=== PATIENT | female | born 1965 | race Caucasian/White ===

== ENCOUNTER 2020-09-14 14:59 | Outpatient (REF) | payer OTHER, SELFPAY ==
--- NOTE | 2020-09-14 15:04 | MM_ITS ---
EXAMINATION: MM DIAGNOSTIC DIGITAL BREAST TOMOSYNTHESIS, BILATERAL CLINICAL INFORMATION: Due for yearly. Family history breast cancer in sister, age 50s. Prior outside mammography notes probable benign nodule upper outer quadrant left breast for diagnostic follow-up. The lifetime risk of breast cancer based on the Tyrer-Cuzick Model is 12%. COMPARISON: Outside exams: mammography 02/14/2019, 01/21/2019, 04/09/2010 and ultrasound (report) 02/14/2019 ([facility]). TECHNIQUE: Digital breast tomosynthesis is performed in both the craniocaudal and mediolateral oblique views along with computer-aided detection (CAD). Synthesized 2D images are generated from the tomosynthesis. FINDINGS: There are scattered areas of fibroglandular density (ACR BI-RADS breast composition Category b). There is scattered fine nodularity in each breast similar to outside exam. There is no interval dominant nodule, significant mass, developing density, or architectural abnormality. No abnormal calcifications. The nodule for follow-up upper outer left breast approximately 10.4 cm from nipple on CC view is stable, measuring approximately 6 x 5 x 4 mm, with smooth margin and a punctate peripheral rim calcification. The axilla and skin contours are unremarkable. No significant changes. Results are discussed with the patient at time of visit. MM/MM tomosynthesis diagnostic BI IMPRESSION: 1. No significant changes from prior outside exam. 2. Benign-appearing nodule for follow-up upper outer left breast stable. ASSESSMENT: BI-RADS 3: Probably Benign RECOMMENDATION: Diagnostic mammography at time of next annual exam, due in 12 months. This patient's information was entered into a reminder system with a target due date for their next mammogram.
== END 2020-09-14 15:00 | disposition home or self-care (01) ==
LOC: HO.MAMMO 14:59
PROVIDERS: Visit Provider Physician Assistant
DX: N63.21 Unspecified lump in the left breast, upper outer quadrant (principal); Z80.3 Family history of malignant neoplasm of breast
CPT/HCPCS: 77062; 77066

== ENCOUNTER 2021-10-04 14:45 | Outpatient (REF) | payer OTHER, SELFPAY ==
--- NOTE | ~2021-10-04 | MM_ITS ---
EXAMINATION: MM DIAGNOSTIC DIGITAL BREAST TOMOSYNTHESIS, BILATERAL CLINICAL INFORMATION: 12 month follow-up left breast nodule The lifetime risk of breast cancer based on the Tyrer-Cuzick Model is 17.3%. COMPARISON: Mammography: September 14, 2020 and studies dating back to April 09, 2010 TECHNIQUE: Digital breast tomosynthesis is performed in both the craniocaudal and mediolateral oblique views along with computer-aided detection (CAD). Synthesized 2D images are generated from the tomosynthesis. FINDINGS: There are scattered areas of fibroglandular density (ACR BI-RADS breast composition Category b). There is again noted to be multiplicity and bilaterality of circumscribed densities without significant change from prior studies. No abnormal dominant mass or suspicious grouping of microcalcifications identified. Results are provided to the patient at time of visit by the technologist. MM/MM tomosynthesis diagnostic BI IMPRESSION: There are no significant changes from prior study. ASSESSMENT: BI-RADS 2: Benign RECOMMENDATION: Routine annual mammography screening. This patient's information was entered into a reminder system with a target due date for their next mammogram.
== END 2021-10-04 14:46 | disposition home or self-care (01) ==
LOC: HO.MAMMO 14:45
PROVIDERS: PCP Physician Assistant; Visit Provider Physician Assistant
DX: R92.2 Inconclusive mammogram (principal)
CPT/HCPCS: 77062; 77066

== ENCOUNTER 2021-12-22 14:14 | Emergency (ER) | payer OTHER, SELFPAY ==
[2021-12-22] VITALS (9 sets, daily range): BP systolic 127–175; BP diastolic 64–85; PULSE 55–78; RESP 13–24; TEMP 36.1–36.8; O2SAT 97–99; BMI 37.2
--- NOTE | 2021-12-22 | ECG_ITS ---
Test Reason : chest pain Blood Pressure : / mmHG Vent. Rate : 076 BPM Atrial Rate : 076 BPM P-R Int : 162 ms QRS Dur : 092 ms QT Int : 374 ms P-R-T Axes : 053 -30 029 degrees QTc Int : 420 ms Normal sinus rhythm Left axis deviation Moderate voltage criteria for LVH, may be normal variant ( R in aVL , [place] product ) Abnormal ECG No previous ECGs available Referred By: Generic ED Physician Electronically Signed By:SLAVA JETER MD
--- NOTE | ~2021-12-22 | XR_ITS ---
EXAMINATION: XR CHEST CLINICAL INFORMATION: Chest pain and shortness of breath. COMPARISON: None TECHNIQUE: Frontal view of the chest was obtained. FINDINGS: Lungs are adequately expanded and grossly clear. No pulmonary edema, consolidation or pleural effusion. Cardiac silhouette is normal in size. The hilar contours are normal. The visualized bones and upper abdomen are unremarkable. XR/XR chest 1V IMPRESSION: No acute pulmonary disease.
--- NOTE | ~2021-12-22 | CT_ITS ---
EXAMINATION: CT HEAD WITHOUT CONTRAST CLINICAL INFORMATION: Confusion COMPARISON: None TECHNIQUE: Contiguous axial imaging was performed from the skull base to vertex without intravenous administration of contrast. This CT examination was performed using dose optimization techniques as appropriate, variously including the following: *Automated exposure control *Adjustment of mA and/or kV according to patient size (this includes techniques or standardized protocols for targeted exams where dose is matched to indication/reason for exam; i.e. extremities or head) *Use of iterative reconstruction technique DLP: 740 mGy-cm FINDINGS: There is no evidence of acute intracranial hemorrhage or territorial infarction. No abnormal mass effect or midline shift is seen. Harmon to white matter differentiation is well preserved. No extra-axial fluid collections are identified. The ventricles are normal in size. There is no abnormal attenuation within the brain parenchyma. The osseous structures and soft tissues are normal. The mastoid air cells and visualized portions of the paranasal sinuses are well aerated. CT/CT head/brain wo con IMPRESSION: No acute intracranial process seen.
[2021-12-22 16:39] LABS: MANUAL DIFF FLAG NO
[2021-12-22 16:41] LABS: Basophils Percent Auto 0.4 % (0-2); Eosinophils Absolute Auto 0.1 X10*3/uL (0.0-0.4); Eosinophils Percent Auto 1.6 % (0-4); Hematocrit 39.6 % (37.0-47.0); Hemoglobin 12.7 g/dl (12.0-16.0); Imm Gran Abs Auto 0.02 X10*3/uL (0.00-0.03); Imm Gran Pct Auto 0.3 % (0.0-0.4); Lymphocytes Absolute Auto 1.3 X10*3/uL (1.2-4.9); Mean Corpuscular HGB Conc 32.1 g/dl (31.0-35.0); Mean Corpuscular Hemoglobin 29.7 pg (27.0-33.0); Mean Corpuscular Volume 92.5 fL (80.0-98.0); Mean Platelet Volume 9.8 fL (9.4-12.3); Monocytes Absolute Auto 0.5 X10*3/uL (0.1-1.2); Monocytes Percent Auto 6.4 % (2-11); Neutrophils Absolute Auto 5.1 x10*3/uL (2.0-8.3); Neutrophils Percent Auto 72.3 % (45-73); Platelet Count 262 X10*3/uL (160-400); Red Blood Count 4.28 X10*6/uL (4.20-5.50); Red Cell Distribution Width 13.2 % (11.0-16.0); White Blood Count 7.1 X10*3/uL (4.8-10.8)
[2021-12-22 16:55] LABS: COVID-19 Test Negative (Negative)
[2021-12-22 16:59] LABS: Alanine Aminotransferase 19 U/L (0-31); Albumin Level 3.9 g/dL (3.5-5.0); Alkaline Phosphatase 81 U/L (39-117); Anion Gap 14 (12-20); Aspartate Amino Transferase 15 U/L (5-31); Bilirubin Total 0.3 mg/dL (0.0-1.0); Blood Urea Nitrogen 16 mg/dL (9-16); Calcium 9.6 mg/dL (8.4-10.2); Carbon Dioxide 25 mmol/L (22-29); Chloride 107 mmol/L (96-108); Estimated Glomerular Filt Rate > 60; Glucose Random 133 mg/dL (60-115); Potassium 3.9 mmol/L (3.3-5.1); Sodium 142 mmol/L (135-145); Total Protein 6.8 g/dL (6.5-8.0)
[2021-12-22 17:02] LABS: Appearance Urine CLEAR; Color Urine YELLOW; Glucose Urine UA NEG (NEG); Leukocyte Esterase Urine NEG (NEG); Nitrite Urine NEG (NEG); PH 5.5 (5.0-8.0); Specific Gravity - Urine >= 1.030 (1.005-1.025); Urine Blood NEG (NEG); Urine Ketones 5 MG/DL (NEG); Urine Protein NEG (NEG-TRACE)
[2021-12-22 17:04] LABS: Troponin-I High Sensitivity < 3.5 ng/L (<3.5-17.0)
--- NOTE | 2021-12-22 18:28 | ED.GENADULT ---
HPI - General Adult General Chief complaint: Arrhythmia/Palpitations Stated complaint: chest pain diff breathing Time Seen by Provider: 12/22/21 16:07 Source: patient Mode of arrival: ambulatory Limitations: no limitations History of Present Illness HPI narrative: This is a 56-year-old female past medical history of hypertension presenting to the emergency department with complaints of chest pain, shortness of breath, and feeling strange X 4 hours. Patient tells me she was sitting at Easter dinner and she began feeling slightly dizzy likje the room was spinning, weak, she became short of breath and started having substernal chest pain that did not radiate. She tells me it felt like a strange squeezing sensation in her chest. He tells me that she asked her son to bring her home, on the way home she tells me she started feeling confused, not making sense. She tells me this is never happened to her before. She tells me that at this time all of her symptoms have subsided and she feels much better. She denies vision changes, dizziness, headache, chest pain, shortness of breath, weakness, nausea, vomiting, abdominal pain, diaphoresis, numbness or tingling. Patient has no significant cardiac history. Patient tells me that her family however does have cardiac history including her dad and brother. Onset (ago): hour(s) (4) Location: chest Radiation: non-radiation Severity: moderate Pain Consistency: now resolved Relieving factors: none Exacerbating factors: none Associated symptoms: denies other symptoms Treatments prior to arrival: none Related Data Allergies Allergy/AdvReac Type Severity Reaction Status Date / Time No Known Allergies Allergy Verified 12/22/21 14:26 Review of Systems Review of Systems: Constitutional : No Weight loss, No Fever, No Chills, No Fatigue, No Malaise ENT/Mouth : No sore throat, No Rhinorrhea Eyes: No Eye Pain, No Swelling, No Redness Cardiovascular :No Chest Pain, No SOB, No Dyspnea on Exertion, No Orthopnea, No Edema, No Palpitations Respiratory : No Cough, No Sputum, No Wheezing Gastrointestinal : No Nausea, No Vomiting, No Diarrhea, No Constipation, No abdominal Pain, No Hematochezia, No Melena Genitourinary : No Dysuria, No Urinary Frequency, No Hematuria, Musculoskeletal : No joint pain, No Myalgias, No Joint Swelling Skin : No Skin Lesions, No rash Neuro : No Weakness, No Numbness, No Dizziness, No Headache Psych : No Anxiety/Panic, No Depression All other systems reviewed and are negative Yes all other systems are reviewed and are negative [facility] Past Medical History Attestation statement: The following information was validated with the patient. Source: old records reviewed and nursing notes reviewed Medical History Hypertension Surgical History Total knee replacement status Social History Social History Advance Directives: No Advance Directives Information Provided: No Patient : No Physical Exam ED Vital Signs: Vital Signs - 24 hr 12/22/21 14:28 12/22/21 15:56 12/22/21 17:57 Temperature 97 F 98.2 F 98.3 F Pulse Rate 78 63 58 Respiratory Rate 24 H 16 16 Blood Pressure 165/79 H 131/64 127/69 Pulse Oximetry 97 98 99 12/22/21 20:01 12/22/21 20:23 12/22/21 20:24 Temperature 98.1 F Pulse Rate 65 55 61 Respiratory Rate 13 Blood Pressure 149/75 H 148/67 H 157/79 H Pulse Oximetry 98 12/22/21 20:25 Temperature Pulse Rate 57 Respiratory Rate Blood Pressure 175/85 H Pulse Oximetry BMI result Body Mass Index 37.2 Vital signs stable Appearance: Alert.? Oriented X3.? No acute distress.? Head: Normocephalic, atraumatic, no step-offs or deformities Eyes: Pupils equal, round and reactive to light.? ENT: Pharynx normal.? Neck: Normal inspection.? Neck supple.? CVS: Normal heart rate and rhythm.? Pulses normal.? Respiratory: No respiratory distress.? Breath sounds normal.? Abdomen: Soft and nontender.? Skin: Skin warm and dry.? Normal skin color.? Normal skin turgor.? Extremities: No lower extremity edema.? No calf ttp. 5/5 strength to bilateral upper and lower extremities Back: No midline tenderness, no C-spine tenderness, full range of motion, no CVA tenderness bilaterally Neuro: Oriented X 3.? No motor deficit.? No sensory deficit. CN 2-12 intact . Normal dhizcq-rr-kuck, psgj-[id number], steady tandem gait. Course Reevaluation(s) Reevaluation #1: CBC within normal limits. No acute electrolyte abnormalities. Troponin negative. Urine without infection. COVID negative. Chest CT with no acute pulmonary disease. Head CT is no acute intracranial process seen. Time: 18:33 Reevaluation #2: Upon re-evaluation patient's neuro exam remains nonfocal, normal cerebellar function. Patient tells me she feels like she is at baseline, no issues she denies chest pain and shortness of breath. Patient's son is at the bedside who tells me that when this happened patient was complaining of dizziness and then she said she did not feel good and she was slow to respond however she was responding and making sense she was is having trouble putting her thoughts together. At no time did patient lose consciousness. At this time she feels much better she looks good with stable vitals. Will do orthostatic vitals hydrate with 1 L of fluid plan is for discharge home Time: 19:45 Reevaluation #3: 1 L fluids given. Ortho is negative. At this time patient will be discharged home Time: 21:01 Medical Decision Making MDM Narrative Medical decision making narrative: 1606 56 yo f presents w/ dizziness, cp, sob, weakness X4 hours. Physical examination benign. Normal cerebellar function. Lungs clear. Regular rate and rhythm. No lower extremity edema. Neuro exam nonfocal. Pupils equal round and reactive to light. Negative pronator drift. Plan at this time is labs, imaging, EKG. NIH score 0 PERC score of 1 because of age however unlikely PE. Unlikely posterior stroke normal steady gait, normal cerebellar function no vision changes. Medical Records Medical records reviewed: Yes I reviewed the patient's medical records. Lab Data Lab results reviewed: Yes I reviewed the patient's lab results. Result diagrams: 12/22/21 16:31 12/22/21 16:31 Labs: Lab Results 12/22/21 12/22/21 12/22/21 Range/Units 16:31 16:31 16:31 WBC 7.1 (4.8-10.8) X10*3/uL RBC 4.28 (4.20-5.50) X10*6/uL Hgb 12.7 (12.0-16.0) g/dl Hct 39.6 (37.0-47.0) % MCV 92.5 (80.0-98.0) fL MCH 29.7 (27.0-33.0) pg MCHC 32.1 (31.0-35.0) g/dl RDW 13.2 (11.0-16.0) % Plt Count 262 (160-400) X10*3/uL MPV 9.8 (9.4-12.3) fL Immature Gran % (Auto) 0.3 (0.0-0.4) % Neut % (Auto) 72.3 (45-73) % Lymph % (Auto) 19.0 L (20-40) % [place] % (Auto) 6.4 (2-11) % Eos % (Auto) 1.6 (0-4) % Baso % (Auto) 0.4 (0-2) % Lymph # (Auto) 1.3 (1.2-4.9) X10*3/uL [place] # (Auto) 0.5 (0.1-1.2) X10*3/uL Eos # (Auto) 0.1 (0.0-0.4) X10*3/uL Baso # (Auto) 0.0 (0.0-0.2) X10*3/uL Abs Immat Gran (auto) 0.02 (0.00-0.03) X10*3/uL Absolute Neuts (auto) 5.1 (2.0-8.3) x10*3/uL Absolute Nucleated RBC 0.000 (0.0-0.012) X10*3/uL Nucleated RBC % (auto) 0.0 (0.0-0.2) /100WBC Sodium 142 (135-145) mmol/L Potassium 3.9 (3.3-5.1) mmol/L Chloride 107 (96-108) mmol/L Carbon Dioxide 25 (22-29) mmol/L Anion Gap 14 (12-20) BUN 16 (9-16) mg/dL Creatinine 0.82 (0.5-1.4) mg/dL Estim Creat Clear Calc 82.0 Estimated GFR > 60 Random Glucose 133 H (60-115) mg/dL Calcium 9.6 (8.4-10.2) mg/dL Magnesium 2.0 (1.6-2.6) mg/dL Total Bilirubin 0.3 (0.0-1.0) mg/dL AST 15 (5-31) U/L ALT 19 (0-31) U/L Alkaline Phosphatase 81 (39-117) U/L Troponin I High Sens < 3.5 (<3.5-17.0) ng/L Total Protein 6.8 (6.5-8.0) g/dL Albumin 3.9 (3.5-5.0) g/dL Urine Color Urine Appearance Urine pH (5.0-8.0) Ur Specific [place] (1.005-1.025) Urine Protein (NEG-TRACE) MG/DL Urine Glucose (UA) (NEG) MG/DL Urine Ketones (NEG) MG/DL Urine Blood (NEG) Urine Nitrite (NEG) Ur Leukocyte Esterase (NEG) COVID-19 ([facility]) (Negative) COVID-19 Clin Com 12/22/21 12/22/21 12/22/21 Range/Units 16:31 16:56 20:14 WBC (4.8-10.8) X10*3/uL RBC (4.20-5.50) X10*6/uL Hgb (12.0-16.0) g/dl Hct (37.0-47.0) % MCV (80.0-98.0) fL MCH (27.0-33.0) pg MCHC (31.0-35.0) g/dl RDW (11.0-16.0) % Plt Count (160-400) X10*3/uL MPV (9.4-12.3) fL Immature Gran % (Auto) (0.0-0.4) % Neut % (Auto) (45-73) % Lymph % (Auto) (20-40) % [place] % (Auto) (2-11) % Eos % (Auto) (0-4) % Baso % (Auto) (0-2) % Lymph # (Auto) (1.2-4.9) X10*3/uL [place] # (Auto) (0.1-1.2) X10*3/uL Eos # (Auto) (0.0-0.4) X10*3/uL Baso # (Auto) (0.0-0.2) X10*3/uL Abs Immat Gran (auto) (0.00-0.03) X10*3/uL Absolute Neuts (auto) (2.0-8.3) x10*3/uL Absolute Nucleated RBC (0.0-0.012) X10*3/uL Nucleated RBC % (auto) (0.0-0.2) /100WBC Sodium (135-145) mmol/L Potassium (3.3-5.1) mmol/L Chloride (96-108) mmol/L Carbon Dioxide (22-29) mmol/L Anion Gap (12-20) BUN (9-16) mg/dL Creatinine (0.5-1.4) mg/dL Estim Creat Clear Calc Estimated GFR Random Glucose (60-115) mg/dL Calcium (8.4-10.2) mg/dL Magnesium (1.6-2.6) mg/dL Total Bilirubin (0.0-1.0) mg/dL AST (5-31) U/L ALT (0-31) U/L Alkaline Phosphatase (39-117) U/L Troponin I High Sens < 3.5 (<3.5-17.0) ng/L Total Protein (6.5-8.0) g/dL Albumin (3.5-5.0) g/dL Urine Color YELLOW Urine Appearance CLEAR Urine pH 5.5 (5.0-8.0) Ur Specific [place] >= 1.030 H (1.005-1.025) Urine Protein NEG (NEG-TRACE) MG/DL Urine Glucose (UA) NEG (NEG) MG/DL Urine Ketones 5 (NEG) MG/DL Urine Blood NEG (NEG) Urine Nitrite NEG (NEG) Ur Leukocyte Esterase NEG (NEG) COVID-19 ([facility]) Negative (Negative) COVID-19 Clin Com See Note ECG Data Attestation: I personally reviewed and interpreted this ECG as follows: Prior ECG tracings: not available for review Interpretation: Ventricular rate of 76 PA normal, QRS normal, QT/QTC normal. EKG shows normal sinus rhythm with left axis deviation and some criteria for LVH. No previous EKGs to compare with however no acute signs of ischemia at this time. Critical Care Time Critical Care Time Critical Care Time: No Discharge Plan Discharge Clinical Impression: Chest pain not due to acute coronary syndrome, Dizziness, Shortness of breath Patient Disposition: Home, Self-Care Instructions: Chest Pain (ED), Dizziness (ED), Shortness of Breath (ED) Additional Instructions: Take your medications as prescribed. If you were prescribed antibiotics today, it is important that you take your medication to their entirety, do not skip any doses, do not finish them early. Follow-up with your primary care provider this week. Return to the emergency department with new or worsening symptoms. Such as fevers, chills, chest pain, shortness of breath, nausea, vomiting, dizziness, headache, vision changes, lethargy, weakness, changes in speech, In case of emergency call 911 Referrals: Lilly Mei PA [Primary Care Provider] - 1 week Stand Alone Forms: Work/School Release
[2021-12-22] MEDS: 0.9 % Sodium Chloride 1,000 ML 999 ML IV (19:45)
[2021-12-22 20:41] LABS: Troponin-I High Sensitivity < 3.5 ng/L (<3.5-17.0)
== END 2021-12-22 21:23 | disposition home or self-care (01) ==
PROVIDERS: Physician Assistant; Emergency Provider Emergency Medicine Emergency Medical Services; PCP Physician Assistant
DX: R07.89 Other chest pain (principal); R42 Dizziness and giddiness; R06.02 Shortness of breath; I10 Essential (primary) hypertension; Z20.822 Contact with and (suspected) exposure to COVID-19
CPT/HCPCS: 36415; 70450; 71045; 80053; 81003; 83735; 84484; 85025; 87635; 93005; 96360; 99284

== ENCOUNTER 2022-05-19 10:04 | Emergency (ER) | payer OTHER, SELFPAY ==
--- NOTE | ~2022-05-19 | XR_ITS ---
EXAMINATION: XR KNEE, LEFT CLINICAL INFORMATION: Slipped 2 weeks ago. Pain. Poor weightbearing tolerance COMPARISON: None TECHNIQUE: AP and lateral views of the left knee. FINDINGS: There is increased suprapatellar soft tissue density. Mild medial compartment joint space narrowing. No fracture or dislocation seen. XR/XR knee LT 2V IMPRESSION: There is increased suprapatellar soft tissue density which could reflect overlying soft tissues or a small joint effusion. No acute osseous abnormality seen.
[2022-05-19 10:31] VITALS: BP 152/65; PULSE 102; RESP 16; O2SAT 97; BMI 37.2
--- NOTE | 2022-05-19 12:07 | ED_ITS ---
HPI - Extremity Injury (Lower) General Chief Complaint: Extremity Injury, Lower Stated Complaint: l leg inj pain Time Seen by Provider: 05/19/22 11:51 Source: patient Mode of arrival: wheelchair Limitations: no limitations History of Present Illness HPI Narrative: Patient presents emergency department for evaluation of left knee pain. She reports slipping in the rain approximately 2 weeks ago. She has had pain since this fall. The pain is mostly localized to the anterior knee. Pain is made worse with weight-bearing, ambulation, but also is made worse when elevating the leg in a fully extended position. He states that the pain has been getting worse as days move on. She denies any prior injury or arthritis to this knee. Denies fevers, chills, redness, rash, warmth. States that it was initially very swollen but this has decreased. She had trialed using crutches given to a bifrontal but this is not helping. She has been using a walker and this has helped alleviate some of her pain. Related Data Previous Rx's Medication Instructions Recorded naproxen 500 mg tablet 500 mg PO BID PRN pain #20 tabs 05/19/22 Allergies Allergy/AdvReac Type Severity Reaction Status Date / Time No Known Allergies Allergy Verified 12/22/21 14:26 Review of Systems Review of Systems: Musculoskeletal: Positive knee pain as noted in HPI Yes all other systems are reviewed and are negative [facility] Past Medical History Attestation statement: The following information was validated with the patient. Source: old records reviewed Medical History Hypertension Surgical History Total knee replacement status Social History Social History Advance Directives: No Advance Directives Information Provided: No Physical Exam Vital Signs: Vital Signs: Last Vital Signs Pulse 102 H 05/19/22 10:31 Resp 16 05/19/22 10:31 BP 152/65 H 05/19/22 10:31 Pulse Ox 97 05/19/22 10:31 O2 Del Method 05/19/22 10:31 BMI result Body Mass Index 37.2 Appearance: Alert.?Oriented to person, place and time. No acute distress.?Normal affect. Eyes: Pupils equal, round and reactive to light.? ENT: Pharynx normal.?? Neck: Normal inspection.? Neck supple.?? CVS: Heart sounds normal. Normal heart rate and rhythm.? Pulses normal.?? Respiratory: No respiratory distress.? Lung sounds clear to auscultation bilaterally?? Abdomen: Soft and non-tender. Normoactive bowel sounds. Skin: Skin warm and dry.? Normal skin color.? Extremities: No lower extremity edema.? No calf ttp?left knee without obvious deformity, crepitus, effusion, redness, warmth, swelling. No laxity on exam, anterior drawer test negative, posterior drawer test negative, Varus stress test negative, valgus stress test negative. Neuro: Moves all extremities spontaneously. Sensation intact bilaterally. No motor deficits. Patient sitting in a wheelchair, unwilling to demonstrate ambulation Course Course Course Narrative: Patient is a 57-year-old female with a past medical history of hypertension presents to the emergency department for evaluation traumatic knee pain. XR reveals no acute fracture dislocation. No obvious deformities on exam. No effusion. Not consistent with septic joint. Patient does have full AROM to the left knee. Advised patient cannot completely exclude ligamentous or meniscus injury as x-ray imaging is not the preferred modality for this. Advised that she will need to follow-up with orthopedics for further evaluation and treatment. She has been taking ibuprofen 200 mg with no improvement. Advised to transition to naproxen as opposed to ibuprofen. Offered oxycodone however patient declines this medication. Patient offered knee immobilizer in addition to crutches however declines to use the crutches as the is hurts her arms, states she only wants to wear the immobilizer at bedtime, will continue using her walker. Discussed worsening signs and symptoms to return back to the emergency department for. Patient verbalized understanding, will contact Orthopedics for further follow-up. MDM - Extremity Injury (Lower) Medical Records Attestation: I reviewed the patient's medical records. Imaging Data XR knee: Radiologist's impression: XR/XR knee LT 2V IMPRESSION: There is increased suprapatellar soft tissue density which could reflect overlying soft tissues or a small joint effusion. ? No acute osseous abnormality seen. ? Discharge Plan Discharge Clinical Impression: Left knee sprain Patient Disposition: Home, Self-Care Instructions: Knee Sprain (ED) Additional Instructions: As we discussed, the x-ray does not reveal any fracture dislocation to your knee. Continue using the walker as you have been as this has given out the most relief, and ability to take weight off for your leg. An Geo bandage may provide you with some comfort by applying compression to your knee. You have been given a prescription for naproxen to help with your pain, take this twice a day, do not take additional [id number] medications such as ibuprofen/Motrin/Advil or Aleve. Contact Orthopedics to arrange for further follow-up You may follow-up with your primary care provider as well. Feel free to return to the emergency department any new or worsening symptoms or concerns. Prescriptions: New naproxen 500 mg tablet 500 mg PO BID PRN (Reason: pain) Qty: 20 0RF Referrals: Martha Meng PA-C [[facility]] - Discharge Date/Time: 05/19/22 12:30
== END 2022-05-19 12:30 | disposition home or self-care (01) ==
PROVIDERS: Emergency Provider Emergency Medicine; PCP Internal Medicine
DX: S83.92XA Sprain of unspecified site of left knee, initial encounter (principal); W01.0XXA Fall on same level from slipping, tripping and stumbling without subsequent striking against object, initial encounter; Y93.9 Activity, unspecified; Y92.410 Unspecified street and highway as the place of occurrence of the external cause; Y99.9 Unspecified external cause status
CPT/HCPCS: 73560; 99281; 99283

== ENCOUNTER 2022-10-10 14:56 | Outpatient (REF) | payer OTHER, SELFPAY ==
--- NOTE | ~2022-10-10 | MM_ITS ---
EXAMINATION: MM SCREENING DIGITAL BREAST TOMOSYNTHESIS, BILATERAL CLINICAL INFORMATION: Screening. Asymptomatic. The lifetime risk of breast cancer based on the Tyrer-Cuzick Model is 11.8%. COMPARISON: Mammography: September 26, 2021 and studies dating back to April 09, 2010 TECHNIQUE: Digital breast tomosynthesis is performed in both the craniocaudal and mediolateral oblique views along with computer-aided detection (CAD). Synthesized 2D images are generated from the tomosynthesis. FINDINGS: There are scattered areas of fibroglandular density (ACR BI-RADS breast composition Category b). There are no new significant masses, abnormal calcifications, or other abnormalities. There is multiplicity and bilaterality of stable circumscribed densities. MM/MM tomosynthesis screening BI IMPRESSION: No significant changes from prior exam. ASSESSMENT: BI-RADS 2: Benign RECOMMENDATION: Routine annual mammography screening. This patient's information was entered into a reminder system with a target due date for their next mammogram.
== END 2022-10-10 14:57 | disposition home or self-care (01) ==
LOC: HO.MAMMO 14:56
PROVIDERS: PCP Internal Medicine; Visit Provider Internal Medicine
DX: Z12.31 Encounter for screening mammogram for malignant neoplasm of breast (principal)
CPT/HCPCS: 77063; 77067

== ENCOUNTER 2023-05-06 21:51 | Emergency (ER) | payer OTHER, SELFPAY ==
[2023-05-06 21:52] VITALS: BP 144/84; PULSE 66; RESP 18; TEMP 36.8; O2SAT 99; BMI 33.8
== END 2023-05-06 22:59 | disposition left against medical advice (07) ==
PROVIDERS: Emergency Provider Emergency Medicine; PCP Internal Medicine
DX: M79.662 Pain in left lower leg (principal); M79.661 Pain in right lower leg; M54.50 Low back pain, unspecified; I10 Essential (primary) hypertension; R51.9 Headache, unspecified
CPT/HCPCS: 99281

== ENCOUNTER 2025-08-24 10:14 | Outpatient (REF) | payer SELFPAY ==
--- OUTSIDE RECORDS SUMMARY | 2025-08-23 14:00 | XMS_ITS | Encounter Summary ---
Author Organization [employer] Address [address] [place] [address] Care Team Providers Care Shaft Headman Name Role Phone Kae Johnston Primary Care Provider [phone] Encounter Details Date Type Department Care Team (Late st Contact Info) Description 08/23/2025 2:00 PM EST Office Visit [facility] [address], [place] [phone] Kae Johnston FNP [address] [place], [place] [phone] Encounter for immunization (Primary Dx); Well adult health check Social History Tobacco Use Types Packs/Day Years Used Date Smoking Tobacco: Never Smokeless Tobacco: Never Tobacco Cessation:Counseling Given: No Alcohol Answer Date Recorded Q1: How often do you have a drink containing alc ohol? 1 08/23/2025 Average Number of Drinks Not on file 025 Frequency of Binge Drinking Not on file 08/07 Housing Stability Answer Date Recorded What is your housing situation today? I have julieth palencia 08/23/[address] you li ve. Do you have problems with any of the following? None of the above 08/23/2025 Food Insecurity Answer Date Recorded Within the past 12 months, y ou worried that your food would run out before you got money to buy more: Never True 08/23/2025 Within the past 12 months,th e food you bought just didn't last and you didn't have enough money to get more: Never True Transportation Answer Date Recorded In the past 12 months, has l ack of transportation kept you from medical appts, meetings, work or from getting things needed for daily living? No 08/23/2025 Utilities Answer Date Recorded In the past 12 months, has t he electric, gas, oil or water company threatened to shut off services in your home? No 08/23/2025 Internet Access Answer Date Recorded Internet Access Q1 Yes 08/23/2025 Internet Access Q2 Not on file 08/23/2025 Comments Unknown Sex and Gender Information Value Date Recorded Sex Assigned at Female 08/23/2025 1:58 PM EST Legal Sex Female 12:07 PM EST Gender Identity Female 08/23/2025 1:58 PM EST Sexual Orientation Straight 08/23/2025 1: 58 PM EST documented as of this encounter Last Filed Vital Signs Vital Sign Reading Time Taken Comments Blood Pressure 170/90 08/23/2025 2:19 PM EST Pulse 90 08/23/2025 2:19 PM EST Temperature 36.8 C (98.2 F) 08/23/2025 2:19 PM EST Respiratory Rate 20 08/23/2025 2:19 PM EST Oxygen Saturation - - Inhaled Oxygen Concentration - - Weight 97.5 kg (215 lb) 08/23/2025 2:19 PM EST Height 162.6 cm (5' 4 ) 08/23/2025 2:19 PM EST Body Mass Index 36.9 08/23/2025 2:19 PM EST documented in this encounter Functional Status * Over the last 2 weeks, how often have you been bothered by any of the following problems? Question Answer Date of Assessment Author Feeling nervous, anxious, or on edge 0 08/23/2025 3:20 PM EST Romana Houston MA Not being able to stop or control worrying 0 08/23/2025 3:20 PM EST Romana Houston MA Worrying too much about different things 0 08/23/2025 3:20 PM EST Romana Houston MA Trouble relaxing 0 08/23/2025 3:20 PM EST Romana Muniz MA Being so restless that it is hard to sit still 0 08/23/2025 3:20 PM EST Romana Houston MA Becoming easily annoyed or irritable 0 08/23/2025 3:20 PM EST Romana Houston MA Feeling afraid as if something awful might happen 0 08/23/2025 3:20 PM Romana Madden MA CECY-7 Total Score 0 08/23/2025 3:20 PM Romana Madden MA documented as of this encounter Plan of Treatment Upcoming Encounters Date Type Department Care Team (Late st Contact Info) Description 08/30/2025 11:00 AM EST Clinical Support [facility] [address] [place] [address] 11/22/2025 2:30 PM EDT Office Visit [facility] [address] [place] [address] Kae Johnston FNP [address] [place] [address] Scheduled Orders Name Type Priority Associated Diagnoses Orde r Schedule Comprehensive Metabolic Panel Lab Routine Well adult health check Expected: 08/23/2025 (Approximate), Expires: 08/23/2026 TSH Lab Routine Well adult health check Expected: 08/23/2025 (Approximate), Expires: 08/23/2026 Hepatitis B surface antigen, EIA Lab Routine Well adult health check Expected: 08/23/2025 (Approximate), Expires: 08/23/2026 Hepatitis C Antibody with Reflex to HCV, RNA, Quantitative, Real-Time PCR Lab Routine Well adult health check Expected: 08/23/2025, Expires: 08/23/2026 HIV-1/2 Antigen and Antibodies, Fourth Generation, with Reflexes Lab Routine Well adult health check Expected: 08/23/2025 (Approximate), Expires: 08/23/2026 Lipid Panel, Standard Lab Routine Well adult health check Expected: 08/23/2025 (Approximate), Expires: 08/23/2026 Chlamydia/N. Gonorrhoeae, PCR, Urine Lab Routine Well adult health check Ordered: 08/23/2025 documented as of this encounter Procedures Procedure Name Priority Date/Time Associated Diagnosis Comments CBC WITH AUTO DIFFERENTIAL Routine 08/24/2025 10:31 AM EST Well adult health check HEMOGLOBIN A1C Routine 08/24/2025 10:31 AM EST Well adult health check documented in this encounter Results * (ABNORMAL) Hemoglobin A1c (08/24/2025 10:31 AM EST) Hemoglobin A1c 6.3(H) <6.0 % [facility] Comment:Hemoglobin A1C Refer ence Range Adults: 4.8 - 6.0 % Non diabetic: < 6.0 % Goal: < 7.0 %Additional Action Suggested: > 8.0 %Note: Hemoglobin A1c results are invalid for patients with abnormal amounts of HbF. Blood transfusions may impact the HbA1c concentration in the patient sample. Estimated Average Glucose 134 mg/dL [facility] Comment:eAG = Estimated ave rage glucose which is %A1C expressed asaverage glucose, using the formula of the A0L-ComhwrsYkftkdo Glucose study (ADAG), Diabetes Care, Vol.31,#8,Apr. 2007 Blood Venous blood specimen / Unknown 08/24/2025 10:31 AM EST 08/24/2025 10:59 AM EST Kae Johnston [facility] BLOOD ORDERABLES Final Res ult [facility] [address] [place] [phone] * (ABNORMAL) CBC auto differential (08/24/2025 10:31 AM EST) White Blood Count 6.3 4.8 - 10.8 X10*3/uL [facility] Red Blood Count 4.26 4.20 - 5.50 X10*6/uL [facility] Hemoglobin 12.4 12.0 - 16.0 g/dl [facility] Hematocrit 39.5 37.0 - 47.0 % [facility] Mean Corpuscular Volume 92.7 80.0 - 98.0 fL [facility] Mean Corpuscular Hemoglobin 29.1 27.0 - 33.0 pg [facility] Mean Corpuscular HGB Conc 31.4 31.0 - 35.0 g/dl [facility] Red Cell Distribution Width 13.4 11.0 - 16.0 % [facility] Platelet Count 221 160 - 400 X10*3/uL [facility] Mean Platelet Volume 9.7 9.4 - 12.3 fL [facility] Neutrophils Percent Auto 69.4 45 - 73 % [facility] Imm Gran Pct Auto 0.5(H) 0.0 - 0.4 % [facility] Lymphocytes Percent Auto 19.9(L) 20 - 40 % [facility] Monocytes Percent Auto 7.5 2 - 11 % [facility] Eosinophils Percent Auto 2.2 0 - 4 % [facility] Basophils Percent Auto 0.5 0 - 2 % [facility] NRBC Pct Auto 0.0 0.0 - 0.2 /100WBC [facility] Neutrophils Absolute Auto 4.4 2.0 - 8.3 x10*3/uL [facility] Imm Gran Abs Auto 0.03 0.00 - 0.03 X10*3/uL [facility] Lymphocytes Absolute Auto 1.3 1.2 - 4.9 X10*3/uL [facility] Monocytes Absolute Auto 0.5 0.1 - 1.2 X10*3/uL [facility] Eosinophils Absolute Auto 0.1 0.0 - 0.4 X10*3/uL [facility] Basophils Absolute Auto 0.0 0.0 - 0.2 X10*3/uL [facility] NRBC Abs Auto 0.000 0.0 - 0.012 X10*3/uL [facility] Blood Venous blood specimen / Unknown 08/24/2025 10:31 AM EST 08/24/2025 10:59 AM EST us Kae Johnston ENVIRONMENTAL MANAGEMENT SPECIALIST LAB BLOOD ORDERABLES Final Res ult [facility] [address] [place] [phone] documented in this encounter Visit Diagnoses Diagnosis Encounter for immunization- Primary Well adult health check Unspecified general medical examination documented in this encounter Care Teams Shaft Headman Relationship Specialty Start Date End Date Kae Johnston FNP [address] [place] [phone] PCP - General Family Medicine 08/23/25 documented as of this encounter
[2025-08-24 11:05] LABS: MANUAL DIFF FLAG NO
[2025-08-24 11:25] LABS: Hematocrit 39.5 % (37.0-47.0); Hemoglobin 12.4 g/dl (12.0-16.0); Imm Gran Abs Auto 0.03 X10*3/uL (0.00-0.03); Imm Gran Pct Auto 0.5 % (0.0-0.4); Lymphocytes Absolute Auto 1.3 X10*3/uL (1.2-4.9); Mean Corpuscular HGB Conc 31.4 g/dl (31.0-35.0); Mean Corpuscular Hemoglobin 29.1 pg (27.0-33.0); Mean Corpuscular Volume 92.7 fL (80.0-98.0); NRBC Abs Auto 0.000 X10*3/uL (0.0-0.012); NRBC Pct Auto 0.0 /100WBC (0.0-0.2); Platelet Count 221 X10*3/uL (160-400); Red Blood Count 4.26 X10*6/uL (4.20-5.50); White Blood Count 6.3 X10*3/uL (4.8-10.8)
--- OUTSIDE RECORDS SUMMARY | 2025-08-24 12:39 | XMS_ITS | Clinical Summary ---
Author Organization [employer] Address [address] [place] [address] 7t [place] [address] Care Team Providers Care Personal Lines Agent Name Role Phone Kae Johnston Primary Care Provider [phone] Allergies Active Allergy Reactions Criticality Noted Date Comments Lisinopril Cough 08/23/2025 Medications escitalopram (Lexapro) 10 MG tablet Take 10 mg by mouth Once per day. Active losartan (Cozaar) 100 MG tablet Take 100 mg by mouth Once per day. Active amLODIPine (Norvasc) 5 MG tablet Take 1 tablet (5 mg) by mouth Once per day. 30 tablet 11 08/24/2025 10:57 AM EST 08/23/2025 Active Active Problems Problem Noted Date Diagnosed Date Chronic low back pain 08/23/2025 History of total knee replacement 08/23/2025 Hyperlipidemia 08/23/2025 Hypertension 08/23/2025 IBS (irritable bowel syndrome) 08/23/2025 Severe obesity (CMS/HCC) 08/23/2025 Encounters Date Type Department Care Team Description 08/23/2025 2:00 PM EST Office Visit [facility] [address] [place] [address] Kae Johnston FNP Encounter for immunization (Primary Dx); Well adult health check 08/23/2025 Travel from Last 3 Months Immunizations Immunization Administration Dates Next Due Pneumococcal Conjugate PCV 20 08/23/2025 Family History Medical History Relation Name Comments Stroke Brother Heart disease Father Colon cancer Mother Stomach cancer Sister Relation Name Status Comments Brother Father Mother Sister Social History Tobacco Use Types Packs/Day Years [...] Orientation Straight 08/23/2025 1: 58 PM EST Last Filed Vital Signs Vital Sign Reading [...] Mass Index 36.9 08/23/2025 2:19 PM EST Plan of Treatment Upcoming Encounters Date Type Department Care Team (Late st Contact Info) Description 08/30/2025 11:00 AM EST Clinical Support [facility] [address] [place] [address] 11/22/2025 2:30 PM EDT Office Visit [facility] [address] [place] [address] Kae Johnston, IT SUPPORT MANAGER [address] [place] [address] Health Maintenance Due Date Last Done Comments CT Colonography 1963 Colonoscopy 1963 Colorectal Cancer Screening 1963 Depression Screening 1963 FIT DNA/Cologuard 1963 FIT 1963 FOBT 1963 HIV Screening 1963 Lipid Panel 1963 Sigmoidoscopy 1963 Hepatitis C Screening 1981 Pap Smear 1984 Cervical Cancer Screening 1993 HPV/Cotest 1993 Mammogram 2003 DTaP/Tdap/Td Vaccines (1 - Tdap) 09/20/2016 09/19/2016 Zoster Vaccines (2 of 2) 05/23/2021 03/28/2021 Influenza Vaccine (#1) 2026 11/17/2022 Postp oned from 05/08/2025 (Patient Refused) Alcohol/Substance Use Screening 08/23/2026 08/23/2025 COVID-19 Vaccine (4 - 2024-2 6 season) 2026 09/20/2021, 12/23/2020, 11/30/2020 Postponed from 05/08/2025 (Patient Refused) Disability Screening 08/23/2026 08/23/2025 SDOH Screening 08/23/2026 08/23/2025 Tobacco Screening 08/23/2026 08/23/2025 Diabetes: Hemoglobin A1C 08/24/2026 08/24/2025 RSV Patients and Patients Aged 60 years or older (1 - 1-dose 75+ series) 2038 Pneumococcal Vaccine: 50+ Years Completed 08/23/2025 HIB Vaccines Aged Out No longer eligi ble based on patient's age to complete this topic HPV Vaccines Aged Out No longer eligi ble based on patient's age to complete this topic Hepatitis A Vaccines Aged Out No long er eligible based on patient's age to complete this topic Hepatitis B Vaccines Aged Out No long er eligible based on patient's age to complete this topic IPV Vaccines Aged Out No longer eligi ble based on patient's age to complete this topic Meningococcal B Vaccine Aged Out No l onger eligible based on patient's age to complete this topic Meningococcal Vaccine Aged Out No jackie silvio eligible based on patient's age to complete this topic RSV under 20 months Aged Out No longe r eligible based on patient's age to complete this topic Rotavirus Vaccines Aged Out No longer eligible based on patient's age to complete this topic Procedures Procedure Name Priority Date/Time Associated Diagnosis Comments HEMOGLOBIN A1C Routine 08/24/2025 10:31 AM EST Well adult health check CBC WITH AUTO DIFFERENTIAL Routine 08/24/2025 10:31 AM EST Well adult health check from Last 3 Months Results * (ABNORMAL) CBC auto differential (08/24/2025 10:31 AM EST) White Blood Count 6.3 4.8 - 10.8 X10*3/uL [facility] Red Blood Count 4.26 4.20 - 5.50 X10*6/uL [facility] Hemoglobin 12.4 12.0 - 16.0 g/dl [facility] Hematocrit 39.5 37.0 - 47.0 % [facility] Mean Corpuscular Volume 92.7 80.0 - 98.0 fL [facility] Mean Corpuscular Hemoglobin 29.1 27.0 - 33.0 pg [facility] Mean Corpuscular HGB Conc 31.4 31.0 - 35.0 g/dl [facility] Red Cell Distribution Width 13.4 11.0 - 16.0 % [facility] Platelet Count 221 160 - 400 X10*3/uL [facility] Mean Platelet Volume 9.7 9.4 - 12.3 fL [facility] Neutrophils Percent Auto 69.4 45 - 73 % [facility] Imm Gran Pct Auto 0.5(H) 0.0 - 0.4 % [facility] Lymphocytes Percent Auto 19.9(L) 20 - 40 % [facility] Monocytes Percent Auto 7.5 2 - 11 % [facility] Eosinophils Percent Auto 2.2 0 - 4 % [facility] Basophils Percent Auto 0.5 0 - 2 % [facility] NRBC Pct Auto 0.0 0.0 - 0.2 /100WBC [facility] Neutrophils Absolute Auto 4.4 2.0 - 8.3 x10*3/uL [facility] Imm Gran Abs Auto 0.03 0.00 - 0.03 X10*3/uL [facility] Lymphocytes Absolute Auto 1.3 1.2 - 4.9 X10*3/uL [facility] Monocytes Absolute Auto 0.5 0.1 - 1.2 X10*3/uL [facility] Eosinophils Absolute Auto 0.1 0.0 - 0.4 X10*3/uL [facility] Basophils Absolute Auto 0.0 0.0 - 0.2 X10*3/uL [facility] NRBC Abs Auto 0.000 0.0 - 0.012 X10*3/uL [facility] Blood Venous blood specimen / Unknown 08/24/2025 10:31 AM EST 08/24/2025 10:59 AM EST us Kae Preston IT SUPPORT MANAGER LAB BLOOD ORDERABLES Final Res ult [facility] [address] [place] [phone] * (ABNORMAL) Hemoglobin A1c (08/24/2025 10:31 AM EST) Hemoglobin A1c 6.3(H) <6.0 % [facility] Comment:Hemoglobin A1C Refer ence Range Adults: 4.8 - 6.0 % Non diabetic: < 6.0 % Goal: < 7.0 %Additional Action Suggested: > 8.0 %Note: Hemoglobin A1c results are invalid for patients with abnormal amounts of HbF. Blood transfusions may impact the HbA1c concentration in the patient sample. Estimated Average Glucose 134 mg/dL [facility] Comment:eAG = Estimated ave rage glucose which is %A1C expressed asaverage glucose, using the formula of the S8P-KqmvrlbYdwlnqz Glucose study (ADAG), Diabetes Care, Vol.31,#8,2007 Blood Venous blood specimen / Unknown 08/24/2025 10:31 AM EST 08/24/2025 10:59 AM EST us Kae MARIN LAB BLOOD ORDERABLES Final Res ult [facility] [address] [place] [phone] [phone] from Last 3 Months Insurance [facility] , [address] [place] [address] Care Teams Personal Lines Agent Relationship Specialty Start Date End Date Kae Johnston FNP [address] [place] [phone] PCP - General Family Medicine 08/23/25
--- OUTSIDE RECORDS SUMMARY | 2025-08-24 12:39 | XMS_ITS | Encounter Summary ---
Author Organization [employer] Address [address] [place] [address] Care Team Providers Care Women'S Swim Coach Name Role Phone Kae Johnston [facility] Primary Care Provider [phone] Encounter Details Date Type Department Care Team (Latest Contact Info) Description 08/23/2025 Travel Social History Tobacco Use Types Packs/Day Years Used Date Smoking Tobacco: Never Smokeless Tobacco: Never Alcohol Answer Date Recorded Q1: How often do you have a drink containing alc ohol? 1 08/23/2025 Average Number of Drinks Not on file 025 Frequency of Binge Drinking Not on file 08/07 Housing Stability Answer Date Recorded What is your housing situation today? I have juliethleoncio palencia 08/23/[address] you [...] PM EST documented as of this encounter Functional Status * Over the [...] awful might happen 0 08/23/2025 3:20 PM EST Romana Houston MA CECY-7 Total Score 0 08/23/2025 3:20 PM EST Romana Houston MA documented as of this encounter Plan of Treatment Upcoming Encounters Date Type Department Care Team (Late st Contact Info) Description 08/30/2025 11:00 AM EST Clinical Support [facility] [address] [place] [phone] 11/22/2025 2:30 PM EDT Office Visit [facility] [address] [place] [phone] Kae Johnston FNP [address] [place] [address] documented as of this encounter Visit Diagnoses Not on filedocumented in this encounter Care Teams Women'S Swim Coach Relationship Specialty Start Date End Date Kae Johnston FNP [address] [place] [address] PCP - General Family Medicine 08/23/25 documented as of this encounter
--- OUTSIDE RECORDS SUMMARY | 2025-08-24 12:39 | XMS_ITS | Patient Health Record ---
Author Organization [facility] Address [address] [place] [address] Care Team Providers Care Mathematical Engineering Technician Name Role Phone Valeria Maloney Primary Care Provider UnavailFinesse Ballard Unavailable [phone] Reason For Referral No Information Medications Medication SIG (Take, Route, Frequency, Duration) Notes Start Date End Date Status Dicyclomine HCl 10 MG Capsule 1-2 Orally QID prn abdominal cramps/discomfort; Duration: 30 day(s) 09/16/2019 Active Omeprazole 40 MG Capsule Delayed Release 1 capsule Orally Once a day; Duration: 30 day(s) Active Aspirin 325 MG Tablet 1 tablet Orally prn Active Cholestyramine 4 GM/DOSE Powder 1/2-1 scoop Orally QD or BID for diarrhea; Duration: 30 day(s) 09/16/2019 Active Lisinopril 20 MG Tablet 1 tablet Orally Once a day Active Omeprazole 20 MG Capsule Delayed Release 1 capsule 30 minutes before morning meal Orally Once a day; Duration: 90 Active ProAir HFA 108 (90 Base) MCG/ACT Aerosol Solution 2 puffs as needed Inhalation every 6 hrs Active Immunizations Vaccine Route Administration Date Status Comme nts Influenza Unknown 12/30/2018 Refused Influenza Unknown 09/16/2019 Refused Social History Tobacco Use: Social History Observation Description Date Details (start date - stop date) Former Smoker NA - NA Social History Drugs/Alcohol: Social Info Question Answer Notes Alcohol Screen Did you have a drink containing alcohol in the past year? No Points 0 Interpretation Negative Tobacco Use: Social Info Question Answer Notes Tobacco Use/Smoking Patient is a former smoker How long has it been since you last smoked? 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 Section Notes: Nonsmoker; no sig alcohol Nonsmoker; no sig alcohol Problems Problem Type SNOMED Code ICD Code Onset Dates Problem Status W/U Status Risk Notes Problem Gastro-esophageal reflux disease without esophagitis (555807814) Gastro-esophageal reflux disease without esophagitis (K21.9) Active confirmed Problem History of adenomatous polyp of colon (540442339) History of adenomatous polyp of colon (Z86.010) Active confirmed Problem Change in bowel habit (98923482) Change in bowel habits (R19.4) Active confirmed Problem Irritable bowel syndrome with diarrhea (430908753) Irritable bowel syndrome with diarrhea (K58.0) Active confirmed Problem Gastroesophageal reflux disease without esophagitis (433649852) Gastroesophageal reflux disease without esophagitis (K21.9) Active confirmed Problem Gastroesophageal reflux disease (133646382) Gastroesophageal reflux disease, esophagitis presence not specified (K21.9) Active confirmed Problem Family History of Cancer of Colon (Situation) (223210926) Family history of colon cancer (Z80.0) Active confirmed Problem Hemorrhage of rectum and anus (097773927) Rectal bleed (K62.5) Active confirmed Problem Right upper quadrant pain (098620676) Right upper quadrant abdominal pain (R10.11) Active confirmed Problem Phan's esophagus (421358601) Phan''s esophagus without dysplasia (K22.70) Active confirmed Plan Of Treatment Pending Test Test Name Order Date BUN 01/24/2019 CREATININE 01/24/2019 LIVER PROFILE 12/30/2018 LIVER PROFILE 01/24/2019 LIPASE 12/30/2018 ALPHA-FETOPROTEIN,TUMOR MARKER 9 Future Test Test Name Order Date UPPER GI ENDOSCOPY 12/30/2018 COLONOSCOPY 12/30/2018 Insurance Providers Payer Name Payer Address Payer Phone Subscriber Number Group Number Insured Name Patient Relationship to Insured Coverage Start Date Coverage End Date [facility] [address] [facility] [place] [phone] [id number] MAHAD PERDOMO Self - patient is the insured Medical (General) History Medical History History ICD Code Denies NH,DM,CVA,renal disease GERD Asthma, Hx of pneumonia Urinary incontinence-mild Reports a colonoscopy in 2010 in [place] with removal of polyp Arthritis EGD [id number] HH--tin y area of Phan's, without dysplasia; gastric bx neg for Hpylori; normal duodenal biopsies Colonoscopy 01/2019-small tub ular adenoma, diverticulosis, internal hemorrhoids IBS with diarrhea Negative U/S and CT scan of the abdomen in 2018 Surgical History Surgery Date(Month/Year) Uterine ablation KNEE REPLACEMENT -Right--02/2016
--- OUTSIDE RECORDS SUMMARY | 2025-08-24 12:39 | XMS_ITS | Patient Health Record ---
Author Organization [facility] Address [address] [place] [address] Support Name Relationship Address Phone MAHAD PERDOMO Guarantor Unknown [phone] Reason For Referral No Information Problems Problem Type SNOMED Code ICD Code Onset Dates Problem Status W/U Status Risk Notes Problem Right lower quadrant pain (490728129) Abdominal pain, right lower quadrant (789.03) Active confirmed Diag Plan Of Treatment No Information Insurance Providers Payer Name Payer Address Payer Phone Subscriber Number Group Number Insured Name Patient Relationship to Insured Coverage Start Date Coverage End Date [facility] [address] [place] [id number] [id number] MAHAD PERDOMO Self - patient is the insured
--- OUTSIDE RECORDS SUMMARY | 2025-08-24 12:39 | XMS_ITS | Clinical Summary ---
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 Active omeprazole (PRILOSEC) 20 mg TbEC Take 20 mg by mouth daily before breakfast. Active Active Problems No known active problems Social History Tobacco Use Types Packs/Day Years Used Date Smoking Tobacco: Never Smokeless Tobacco: Never Alcohol Use Standard Drinks/Week Comments Never 0 (1 standard drink = 0.6 oz pur e alcohol) Education Answer Date Recorded Are you interested in more education? Not on kaykay e 01/02/2023 Are you concerned about learning? Not on file 01/02/2023 No 01/02/2023 No 01/02/2023 Digital Access Answer Date Recorded No 01/31/2023 No 01/31/2023 Reliable internet access at home? Not on file 01/31/2023 Device with a working camera? Not on file Comments No Sex and Gender Information Value Date Recorded Sex Assigned at Female 07/09/2019 5:24 PM EDT Legal Sex Female 9:44 PM EDT Gender Identity Female 07/09/2019 5:24 PM EDT Sexual Orientation Not on file Last Filed Vital Signs Vital Sign Reading Time Taken Comments Blood Pressure 133/80 07/09/2019 9:00 PM EDT Pulse 73 07/09/2019 9:00 PM EDT Temperature 36.6 C (97.8 F) 07/09/2019 5:21 PM EDT Respiratory Rate 18 07/09/2019 9:00 PM EDT Oxygen Saturation 100% 07/09/2019 9:00 PM EDT Inhaled Oxygen Concentration - - Weight 97.5 kg (215 lb) 07/09/2019 5:21 PM EDT Height 162.6 cm (5' 4 ) 07/09/2019 5:21 PM EDT Body Mass Index 36.9 07/09/2019 5:21 PM EDT Plan of Treatment Health Maintenance Due Date Last Done Comments Adult Td,Tdap Booster 1963 LIPID PANEL 1963 DEPRESSION SCREENING 1975 HEPATITIS C SCREENING 1981 HIV ONE-TIME SCREENING (18-6 5 YEARS) 1981 PAP SMEAR 1984 MAMMOGRAM 2003 COLOGUARD 2008 COLONOSCOPY 2008 COLORECTAL CANCER SCREENING 2008 FIT TEST 2008 FOBT 2008 SIGMOIDOSCOPY 2008 VIRTUAL COLONOSCOPY 2008 PNEUMOCOCCAL VACCINES (50+ y ears) (1 of 1 - PCV) 2013 ZOSTER VACCINES (1 of 2) 2013 CREATININE LEVEL 07/09/2020 07/09/2019 POTASSIUM LEVEL 07/09/2020 07/09/2019 INFLUENZA VACCINE (#1) 2025 COVID-19 VACCINE (2 - 2024-2 6 season) 2025 11/30/2020 RSV VACCINE (1 - 1-dose 75+ series) 2038 SMOKING STATUS SCREENING (On ce After 26 Yrs) Completed 03/13/2023 HEPATITIS A VACCINES Aged Out No long er eligible based on patient's age to complete this topic HIB VACCINES Aged Out No longer eligi ble based on patient's age to complete this topic MENINGOCOCCAL VACCINES (ACWY) Aged Out No longer eligible based on patient's age to complete this topic MENINGOCOCCAL VACCINES (B) Aged Out N o longer eligible based on patient's age to complete this topic Medical Devices Not on file Procedures Procedure Name Priority Date/Time Associated Diagnosis Comments COMPREHENSIVE METABOLIC PANEL (CMP) STAT 07/09/2019 5:42 PM EDT from Last 3 Months or Most Recently Relevant to Health Maintenance Results * (ABNORMAL) Comprehensive metabolic panel (07/09/2019 5:42 PM EDT) SODIUM 142 133 - 146 mmol/L [facility] POTASSIUM 3.7 3.3 - 5.1 mmol/L [facility] CHLORIDE 102 96 - 108 mmol/L [facility] CO2 26 21 - 35 mmol/L [facility] BUN 14 6 - 19 mg/dL [facility] CREATININE 0.70 0.5 - 1.5 mg/dL [facility] GLUCOSE 124(H) 70 - 99 mg/dL [facility] ALBUMIN 4.0 3.9 - 4.8 g/dL [facility] TOTAL PROTEIN 7.3 6.5 - 8.0 g/dL [facility] CALCIUM 9.6 8.4 - 10.3 mg/dL [facility] ALKALINE PHOSPHATASE 89 39 - 117 U/L [facility] TOTAL BILIRUBIN 0.2 0.0 - 1.2 mg/dL [facility] AST 31 0 - 37 U/L [facility] ALT 31 0 - 40 U/L [facility] GLOBULIN 3.3 1 - 4.8 g/dL [facility] EGFR 97 >59 mL/min/1.7 3m2 [facility] Comment:If patient is black, multiply result by 1.159. Estimated glomerular filtration rate calculated using the CKD-EPI equation. ANION GAP 18 10 - 20 mmol/L [facility] Blood 07/09/2019 5:42 PM EDT 07/09/2019 5:48 PM EDT us Ha Coyne MD LAB BLOOD BKR ORDERAB LES Final Result [facility] [address] [place] [id number] from Last 3 Months or Most Recently Relevant to Health Maintenance Insurance [facility] [place] [facility] Care Teams Mandate Retail Service Merchandiser Relationship Specialty Start Date End Date Unknown, Unknown, PCP - General 12/19/19 Additional Source Comments The information contained in this document represents components of the legal health record. It is not the complete legal health record[facility]
[2025-08-24 12:40] LABS: CT PCR Urine NOT DETECTED (Not Detect.); NG PCR Urine NOT DETECTED (Not Detect.)
[2025-08-24 15:36] LABS: Alanine Aminotransferase 30 U/L (0-31); Albumin Level 3.8 g/dL (3.5-5.0); Alkaline Phosphatase 68 U/L (39-117); Anion Gap 11 (12-20); Aspartate Amino Transferase 34 U/L (5-31); Blood Urea Nitrogen 14 mg/dL (9-16); Calcium 8.6 mg/dL (8.4-10.2); Carbon Dioxide 27 mmol/L (22-29); Chloride 108 mmol/L (96-108); Cholesterol 216 mg/dL (<200); Estimated Glomerular Filt Rate > 60; HDL Cholesterol 45 mg/dL (>40); Potassium 4.0 mmol/L (3.3-5.1); Sodium 142 mmol/L (135-145); Thyroid Stimulating Hormone 2.73 uIU/mL (0.32-4.0); Total Protein 6.7 g/dL (6.5-8.0); Triglycerides 158 mg/dL (<150)
[2025-08-25 08:18] LABS: HBsAGNum1 0.26 S/CO (0.00-0.99); HIV Num 1 0.06 S/CO (0.00-0.99); Hepatitis B Surface Antigen Negative (Negative); ~HepC Num1 0.07 S/CO (0.00-0.79); ~Hepatitis C Antibody Nonreactive (Nonreactive)
== END 2025-08-24 10:15 | disposition home or self-care (01) ==
LOC: HO.HHCL 10:14
PROVIDERS: PCP Nurse Practitioner Family; Visit Provider Nurse Practitioner Family
DX: Z00.00 Encounter for general adult medical examination without abnormal findings (principal); Z20.2 Contact with and (suspected) exposure to infections with a predominantly sexual mode of transmission; Z11.4 Encounter for screening for human immunodeficiency virus [HIV]; Z11.59 Encounter for screening for other viral diseases; Z13.29 Encounter for screening for other suspected endocrine disorder; Z13.1 Encounter for screening for diabetes mellitus; Z13.6 Encounter for screening for cardiovascular disorders
CPT/HCPCS: 80053; 80061; 83036; 84443; 85025; 86803; 87340; 87389; 87491; 87591